=== PATIENT | female | born 1985 | race Caucasian/White ===

== ENCOUNTER 2021-04-10 04:47 | Emergency (ER) | payer SELFPAY ==
[2021-04-10] MEDS ORDERED: Ketorolac Tromethamine 30 MG/ML VIAL ONE (05:29)
== END 2021-04-10 05:50 | disposition home or self-care (01) ==
LOC: ERS 04:47
DX: K02.9 Dental caries, unspecified (principal); I10 Essential (primary) hypertension
CPT/HCPCS: 96372; 99282; J1885

== ENCOUNTER 2022-01-30 11:01 | Emergency (ER) | payer SELFPAY | END 2022-01-30 13:22 | disposition home or self-care (01) | LOC: ERS 11:01 | DX: S60.222A Contusion of left hand, initial encounter (principal); S40.211A Abrasion of right shoulder, initial encounter; M54.2 Cervicalgia; I10 Essential (primary) hypertension; F17.210 Nicotine dependence, cigarettes, uncomplicated; Y04.8XXA Assault by other bodily force, initial encounter | CPT/HCPCS: 72125 ==